=== PATIENT | male | born 1965 | race African-American/Black ===

== ENCOUNTER 2016-11-12 18:41 | Emergency (ER) | payer SELFPAY ==
[~2016-11-12] VITALS: Ht 195.6 cm; Wt 115.6 kg
--- NOTE | 2016-11-12 19:20 | NUR ---
seen and examined by ermd, talk and advised pt regarding aci, and presc ,discharged pt s/p verbalized understanding of aci.
[2016-11-12 19:43] VITALS: BP 130/88
== END 2016-11-12 19:30 | disposition home or self-care (01) ==
LOC: ER 18:45
DX: M25.461 Effusion, right knee (principal)
CPT/HCPCS: 99283; A4663